=== PATIENT | female | born 1950 | race Caucasian/White ===

== ENCOUNTER 2020-01-17 21:01 | Emergency (ER) | payer OTHER ==
[~2020-01-17] VITALS: Ht 160 cm; Wt 77.1 kg
[2020-01-17] MEDS ORDERED: SYNTHROID100 MCG (21:15)
[2020-01-17] MEDS ORDERED: JANUVIA50 MG (21:16)
== END 2020-01-17 23:32 | disposition home or self-care (01) ==
LOC: ER 21:01
DX: I69.398 Other sequelae of cerebral infarction (principal); I69.322 Dysarthria following cerebral infarction; R20.0 Anesthesia of skin; R03.0 Elevated blood-pressure reading, without diagnosis of hypertension

== ENCOUNTER 2020-01-18 10:20 | Outpatient (CLI) | payer OTHER ==
[~2020-01-18 10:20] MED LIST: JANUVIA50 MG; SYNTHROID100 MCG
== END 2020-01-18 10:21 | disposition home or self-care (01) ==
LOC: MRI 10:20
DX: I63.89 Other cerebral infarction (principal); I10 Essential (primary) hypertension
CPT/HCPCS: 70553; A9575; 70552

== ENCOUNTER → 2020-02-17 | Outpatient (CLI) | payer OTHER | END | disposition home or self-care (01) | LOC: NUCLEAR 07:25 | PROVIDERS: ATTEND Internal Medicine Cardiovascular Disease | DX: I11.9 Hypertensive heart disease without heart failure (principal); I25.2 Old myocardial infarction; I70.0 Atherosclerosis of aorta; E78.2 Mixed hyperlipidemia; E11.8 Type 2 diabetes mellitus with unspecified complications; I25.118 Atherosclerotic heart disease of native coronary artery with other forms of angina pectoris | CPT/HCPCS: 78452; 93017; A9500; J0153 ==

== ENCOUNTER 2020-05-19 12:52 | Emergency (ER) | payer OTHER ==
[~2020-05-19] VITALS: Ht 160 cm; Wt 77.1 kg
[2020-05-19] MEDS ORDERED: CRESTOR5 MG (13:04)
[2020-05-19] MEDS ORDERED: PLAVIX75 MG (13:04)
[2020-05-19] MEDS ORDERED: COZAAR100 MG (13:04)
[2020-05-19] MEDS ORDERED: ADALAT CC30 MG (13:04)
[2020-05-19] MEDS ORDERED: VITAMIN D350 MC3 (13:05)
[2020-05-19] MEDS ORDERED: TENCON 50-3251 EACH (13:05)
== END 2020-05-19 19:49 | disposition home or self-care (01) ==
LOC: ER 12:52
DX: R10.2 Pelvic and perineal pain (principal); M54.5 Low back pain; T78.1XXA Other adverse food reactions, not elsewhere classified, initial encounter; X58.XXXA Exposure to other specified factors, initial encounter

== ENCOUNTER 2020-05-21 15:09 | Emergency (ER) | payer OTHER ==
[~2020-05-21] VITALS: Ht 160 cm; Wt 77.1 kg
[~2020-05-21 15:09] MED LIST changes: +ADALAT CC30 MG; +COZAAR100 MG; +CRESTOR5 MG; +PLAVIX75 MG; +TENCON 50-3251 EACH; +VITAMIN D350 MC3
[2020-05-21] MEDS ORDERED: NAPROXEN SODIU550 MG (16:28)
[2020-05-21] MEDS ORDERED: KETO10TA2 PO (18:15)
== END 2020-05-21 18:31 | disposition home or self-care (01) ==
LOC: ER 15:09
DX: N39.0 Urinary tract infection, site not specified (principal); Z20.828 Contact with and (suspected) exposure to other viral communicable diseases

== ENCOUNTER 2020-06-07 10:36 | Outpatient (CLI) | payer OTHER ==
[~2020-06-07 10:36] MED LIST changes: +KETO10TA2 PO; +NAPROXEN SODIU550 MG
== END 2020-06-07 10:44 | disposition home or self-care (01) ==
LOC: MRI 10:36
PROVIDERS: ATTEND Internal Medicine Gastroenterology
DX: K57.30 Diverticulosis of large intestine without perforation or abscess without bleeding (principal); R10.31 Right lower quadrant pain; R93.3 Abnormal findings on diagnostic imaging of other parts of digestive tract
CPT/HCPCS: 74183; A9575; 74182

== ENCOUNTER → 2021-01-18 | Day surgery (SDC) | payer OTHER | END | disposition home or self-care (01) | LOC: CIR.AMB 06:38 | PROVIDERS: ATTEND Surgery | DX: D05.01 Lobular carcinoma in situ of right breast (principal); D05.02 Lobular carcinoma in situ of left breast; Z20.822 Contact with and (suspected) exposure to COVID-19 ==

== ENCOUNTER 2021-04-29 11:21 | Emergency (ER) | payer OTHER ==
[~2021-04-29] VITALS: Ht 160 cm; Wt 81.6 kg
[2021-04-29] MEDS ORDERED: ACTOS15 MG PO (12:17)
[2021-04-29] MEDS ORDERED: GLIMEPIRIDE4 MG (12:17)
[2021-04-29] MEDS ORDERED: ADULT LOW DOSE81 M1 (12:18)
[2021-04-29] MEDS ORDERED: ADALAT CC30 MG (12:18)
[2021-04-29] MEDS ORDERED: NIFEDIPINE20 MG PO (12:18)
[2021-04-29] MEDS ORDERED: NORFLEX100MG PO (14:23)
[2021-04-29] MEDS ORDERED: KETO10TA2 PO (14:23)
== END 2021-04-29 14:25 | disposition home or self-care (01) ==
LOC: ER 11:21
DX: S80.02XA Contusion of left knee, initial encounter (principal); S40.021A Contusion of right upper arm, initial encounter; W10.8XXA Fall (on) (from) other stairs and steps, initial encounter; Y93.89 Activity, other specified; Y92.89 Other specified places as the place of occurrence of the external cause; Y99.8 Other external cause status

== ENCOUNTER 2021-07-12 10:43 | Outpatient (CLI) | payer OTHER ==
[~2021-07-12 10:43] MED LIST changes: +ACTOS15 MG PO; +ADULT LOW DOSE81 M1; +GLIMEPIRIDE4 MG; +NIFEDIPINE20 MG PO; +NORFLEX100MG PO
== END 2021-07-12 10:54 | disposition home or self-care (01) ==
LOC: MRI 10:43
PROVIDERS: ATTEND Surgery
DX: S80.02XA Contusion of left knee, initial encounter (principal); M94.262 Chondromalacia, left knee; S83.242A Other tear of medial meniscus, current injury, left knee, initial encounter
CPT/HCPCS: 73723; A9575; 73722